=== PATIENT | female | born 1990 | race African-American/Black ===

== ENCOUNTER 2020-10-15 15:39 | Emergency (ER) | payer SELFPAY ==
[~2020-10-15] VITALS: Ht 154.9 cm; Wt 97.3 kg
[2020-10-15 16:07] VITALS: BP 110/71; Ht 154.9 cm; Wt 97.3 kg
[2020-10-15] MEDS ORDERED: BUSPAR10 MG PO (16:09)
[2020-10-15] MEDS ORDERED: TRAZODONE HCL100 MG PO (16:09)
[2020-10-15] MEDS ORDERED: LEXAPRO5 MG PO (16:09)
[2020-10-15] MEDS ORDERED: HYDROXYUREA500 MG PO (16:09)
[2020-10-15] MEDS ORDERED: MOBIC7.5 MG PO (16:09)
[2020-10-15 16:48] LABS: BILIRUBIN NEGATIVE (NEGATIVE); KETONE NEGATIVE (NEGATIVE); NITRITE NEGATIVE (NEGATIVE); SQUAMOUS EPITHELIAL 0-5 HPF (0-4); UROBILINOGEN NORMAL mg/dL (< 2)
[2020-10-15 16:49] LABS: BACTERIA FEW HPF (NONE SEEN); WHITE CELLS - URINE 0-5 HPF (0-4)
[2020-10-15] MEDS ORDERED: MACROBID100 MG PO (18:33)
== END 2020-10-15 18:43 | disposition home or self-care (01) ==
LOC: D.ER 15:39
PROVIDERS: Family Medicine
DX: R30.0 Dysuria (principal); Z20.2 Contact with and (suspected) exposure to infections with a predominantly sexual mode of transmission

== ENCOUNTER 2020-10-18 14:26 | Emergency (ER) | payer MEDICARE ==
[~2020-10-18] VITALS: Ht 154.9 cm; Wt 97.3 kg
[~2020-10-18 14:26] MED LIST: BUSPAR10 MG PO; HYDROXYUREA500 MG PO; LEXAPRO5 MG PO; MACROBID100 MG PO; MOBIC7.5 MG PO; TRAZODONE HCL100 MG PO
[2020-10-18 14:33] VITALS: Ht 154.9 cm; Wt 97.3 kg
[2020-10-18 15:15] LABS: BASOPHILS 0.4 % (0-2); HEMATOCRIT 33.2 % (36.0-48.0); IMMATURE GRANULOCYTES 0.4 % (0-5); LYMPHOCYTE ABS# 3.65 10x3/uL (1.18-3.74); LYMPHOCYTES 25.7 % (15-50); MCH 32.8 pg (26.0-34.0); MCHC 36.1 g/dL (31.0-37.0); MCV 90.7 fL (80.0-100.0); MONOCYTES 6.9 % (2-11); NEUTROPHIL ABS# 9.35 10x3/uL (1.56-6.13); NEUTROPHILS 65.6 % (40-80); PLATELET COUNT 426 10x3/uL (130-400); RBC 3.66 10x6/uL (4.00-5.40); RDW 14.6 % (11.5-14.5); WBC 14.2 10x3/uL (4.8-10.8)
[2020-10-18 15:22] LABS: CALC OSMOLALITY 278 mosm/kg (275-300); CARBON DIOXIDE 22.9 mmol/L (21.0-32.0); CHLORIDE - SERUM 105 mmol/L (98-107); CREATININE - SERUM 0.8 mg/dL (0.6-1.3); GLUCOSE 84 mg/dL (74-106); POTASSIUM - SERUM 4.3 mmol/L (3.5-5.1); SODIUM 141 mmol/L (136-145); UREA NITROGEN 10 mg/dL (7-18); eGFR NON AFRICAN AMERICAN 90 mL/min (90-120)
[2020-10-18 15:28] LABS: ALBUMIN 3.7 g/dL (3.4-5.0); ALKALINE PHOSPHATASE 95 U/L (30-120); ALT (SGPT) 82 U/L (10-68); BILIRUBIN - TOTAL 1.26 mg/dL (0.2-1.3); PROTEIN - SERUM 7.2 g/dL (6.4-8.2)
[2020-10-18 16:36] LABS: HCG URINE NEGATIVE (NEGATIVE)
[2020-10-18 16:42] LABS: BILIRUBIN NEGATIVE (NEGATIVE); KETONE NEGATIVE (NEGATIVE); NITRITE NEGATIVE (NEGATIVE); UROBILINOGEN NORMAL mg/dL (< 2)
[2020-10-18 16:43] LABS: WHITE CELLS - URINE 0-5 HPF (0-4)
[2020-10-18 16:44] LABS: BACTERIA FEW HPF (NONE SEEN)
[2020-10-18] MEDS ORDERED: OMNICEF300 MG PO (17:20)
[2020-10-18] MEDS ORDERED: FLORASTOR250 MG PO (17:20)
[2020-10-18 17:52] VITALS: BP 111/70
[2020-10-19] MEDS ORDERED: HYDROXYUREA500 MG PO (17:02)
== END 2020-10-18 17:53 | disposition home or self-care (01) ==
LOC: D.ER 14:26
PROVIDERS: Family Medicine
DX: D57.00 Hb-SS disease with crisis, unspecified (principal); R10.9 Unspecified abdominal pain; R19.7 Diarrhea, unspecified; D72.829 Elevated white blood cell count, unspecified; M79.605 Pain in left leg; M79.604 Pain in right leg; M54.5 Low back pain

== ENCOUNTER 2020-10-19 09:27 | Inpatient (IN) | payer MEDICARE ==
[~2020-10-19] VITALS: Ht 154.9 cm; Wt 97.3 kg
[~2020-10-19 09:27] MED LIST changes: +FLORASTOR250 MG PO; +OMNICEF300 MG PO
[2020-10-19 09:33] VITALS: Ht 154.9 cm; Wt 97.3 kg
--- NOTE | 2020-10-19 09:53 | NUR ---
PT STATES SHE WAS JUST ANSWERING WHAT THE NURSE ASKED HER IN TRIAGE WHEN SHE SAID SHE WISHED SHE WERE . STATES " I JUST NEED AND ANTIBIOTIC BECAUSE MY WHITE COUNT IS HIGH. THEY NEED TO FIND OUT WHAT IS WRONG WITH ME" "I ALSO HAVE AN ODOR , I AM GETTING TREATED BAD WHERE I STAY FOR IT. I NEED SOMETHING FOR THAT TOO. " EXPLAIN WE ARE GOING TO CHECK HER LABS , IF ANYTHING IS WRONG THE DR WILL ORDER WHAT IS NEEDED.
--- NOTE | 2020-10-19 10:03 | NUR ---
PSYCH SCREENER IN ROOM.
[2020-10-19 10:04] LABS: BASOPHILS 0.3 % (0-2); EOSINOPHILS 0.8 % (0-7); HEMATOCRIT 30.3 % (36.0-48.0); HEMOGLOBIN 10.9 g/dL (12-16); IMMATURE GRANULOCYTES 0.5 % (0-5); LYMPHOCYTE ABS# 3.91 10x3/uL (1.18-3.74); LYMPHOCYTES 31.4 % (15-50); MCH 32.9 pg (26.0-34.0); MCV 91.5 fL (80.0-100.0); MEAN PLATELET VOLUME 9.1 fL (7.4-10.4); NEUTROPHIL ABS# 7.35 10x3/uL (1.56-6.13); PLATELET COUNT 275 10x3/uL (130-400); RBC 3.31 10x6/uL (4.00-5.40); RDW 15.1 % (11.5-14.5); RETIC 5.37 % (0.45-2.28); WBC 12.5 10x3/uL (4.8-10.8)
--- NOTE | 2020-10-19 10:16 | NUR ---
Reviewed assessment and histery with Dr. Horta and Dr. Haddad/Maryanne charge nurse, and recommendation for psych placement. She has a history of 2 suicidal attempts, has been treated in the past with counseling (was non-compliant) and medications. She states that she is here at "[facility]" [place] and has not had her medications for the last 3 days. She states she knows she needs them. She is hesitant but will go to inpatient psych if needed. She scored a moderate risk. order rec'd for suicide watch with a assessment and monitoring sitter.
--- NOTE | 2020-10-19 10:19 | NUR ---
URINE AND COVID SWAB SENT TO LAB. LAB STATES BLOOD IS HEMOLIZED AND WILL HAVE TO REDRAW.
--- NOTE | 2020-10-19 10:31 | NUR ---
BELONGINGS PLACED IN BAG PT IN BLUE SCRUBS.
--- NOTE | 2020-10-19 10:31 | NUR ---
SITTER AT DOOR
[2020-10-19 10:37] LABS: BILIRUBIN NEGATIVE (NEGATIVE); KETONE NEGATIVE (NEGATIVE); NITRITE NEGATIVE (NEGATIVE); UROBILINOGEN NORMAL mg/dL (< 2)
[2020-10-19 10:43] LABS: WHITE CELLS - URINE 0-5 HPF (0-4)
[2020-10-19 10:44] LABS: BACTERIA FEW HPF (NONE SEEN)
[2020-10-19 10:47] LABS: UDS - AMPHET NEGATIVE QUAL (NEGATIVE); UDS - BARB NEGATIVE QUAL (NEGATIVE); UDS - BENZO NEGATIVE QUAL (NEGATIVE); UDS - COCAINE NEGATIVE QUAL (NEGATIVE); UDS - OPIATE NEGATIVE QUAL (NEGATIVE); UDS - PCP NEGATIVE QUAL (NEGATIVE); UDS - THC NEGATIVE QUAL (NEGATIVE)
[2020-10-19 10:58] LABS: MAGNESIUM - SERUM 2.2 mg/dL (1.8-2.4)
[2020-10-19 11:05] LABS: ACETAMINOPHEN < 10.0 ug/mL (10.0-30.0)
[2020-10-19 11:07] LABS: SARS-CoV-2 ANTIGEN NEGATIVE- SARS-COV-2 (NEGATIVE)
[2020-10-19 11:08] LABS: AMYLASE - SERUM 94 U/L (25-115); LIPASE 136 U/L (73-393)
[2020-10-19 11:21] LABS: CALC OSMOLALITY 270 mosm/kg (275-300); CALCIUM 8.8 mg/dL (8.5-10.1); CARBON DIOXIDE 25.8 mmol/L (21.0-32.0); CHLORIDE - SERUM 104 mmol/L (98-107); CREATININE - SERUM 0.8 mg/dL (0.6-1.3); GLUCOSE 86 mg/dL (74-106); POTASSIUM - SERUM 4.3 mmol/L (3.5-5.1); SODIUM 137 mmol/L (136-145); UREA NITROGEN 8 mg/dL (7-18); eGFR NON AFRICAN AMERICAN 90 mL/min (90-120)
[2020-10-19 11:27] LABS: ALBUMIN 3.4 g/dL (3.4-5.0); ALKALINE PHOSPHATASE 83 U/L (30-120); ALT (SGPT) 79 U/L (10-68); BILIRUBIN - TOTAL 1.01 mg/dL (0.2-1.3); PROTEIN - SERUM 7.1 g/dL (6.4-8.2)
--- NOTE | 2020-10-19 11:42 | NUR ---
FAX INFORMATION TO WALKER
[2020-10-19] MEDS ORDERED: HYDROXYUREA500 MG PO (17:02)
[2020-10-19 19:27] VITALS: BP 134/78
[2020-10-20 06:51] LABS: BASOPHILS 0.3 % (0-2); EOSINOPHILS 1.2 % (0-7); HEMATOCRIT 30.9 % (36.0-48.0); HEMOGLOBIN 11.1 g/dL (12-16); IMMATURE GRANULOCYTES 0.5 % (0-5); LYMPHOCYTE ABS# 3.39 10x3/uL (1.18-3.74); LYMPHOCYTES 27.1 % (15-50); MCH 32.6 pg (26.0-34.0); MCHC 35.9 g/dL (31.0-37.0); MCV 90.9 fL (80.0-100.0); MONOCYTES 7.3 % (2-11); NEUTROPHIL ABS# 7.97 10x3/uL (1.56-6.13); NEUTROPHILS 63.6 % (40-80); RDW 15.2 % (11.5-14.5); WBC 12.5 10x3/uL (4.8-10.8)
[2020-10-20 07:03] LABS: PLATELET COUNT 400 10x3/uL (130-400)
[2020-10-20 07:15] LABS: ALBUMIN 3.2 g/dL (3.4-5.0); ALKALINE PHOSPHATASE 80 U/L (30-120); ALT (SGPT) 70 U/L (10-68); BILIRUBIN - TOTAL 0.85 mg/dL (0.2-1.3); CALC OSMOLALITY 275 mosm/kg (275-300); CHLORIDE - SERUM 106 mmol/L (98-107); CREATININE - SERUM 0.8 mg/dL (0.6-1.3); GLUCOSE 83 mg/dL (74-106); POTASSIUM - SERUM 4.2 mmol/L (3.5-5.1); PROTEIN - SERUM 6.9 g/dL (6.4-8.2); SODIUM 140 mmol/L (136-145); UREA NITROGEN 8 mg/dL (7-18); eGFR NON AFRICAN AMERICAN 90 mL/min (90-120)
[2020-10-20 18:48] VITALS: BP 116/63
--- NOTE | 2020-10-20 19:22 | NUR ---
pt sitting in bed watching tv given apple juice and mary crackers. pt calm and cooperative. sitter at bedside.
[2020-10-20 20:46] VITALS: BP 114/73
--- NOTE | 2020-10-21 08:29 | NUR ---
BREAKFAST TRAY TO PT.
--- NOTE | 2020-10-21 11:42 | NUR ---
PT IV SITE TO L AC INFILTRATED WITH GOLF BALL SIZE AMOUNT OF NS. IV DC'D CANNULA INTACT. COLD PACK PROVIDED TO PT FOR PT COMFORT. WILL CONTINUE TO MONITOR.
--- NOTE | 2020-10-21 11:43 | NUR ---
MEAL TRAY TO PT. PT EATING. PT STATES NO LONGER FEELS SUICIDAL.
--- NOTE | 2020-10-21 11:48 | NUR ---
REQUEST SENT TO CARE FOR DR. TURK TO RE-EVALUATE PT. PT STATES IS NO LONGER FEELING SUICIDAL.
--- NOTE | 2020-10-21 14:19 | CN ---
PATIENT NAME:NOAH SOLORZANO MEDICAL RECORD: [id number] : 89 LOCATION:[facility]- ADMIT DATE: 10/19/20 ACCOUNT: [id number] CONSULTING PHYSICIAN: MARCO TURK MD REFERRING PHYSICIAN: DONNIE BRIONES MD DATE OF CONSULTATION: 10/20/2020 IDENTIFYING DATA: The patient is 30 years old and she is admitted to the hospital voluntarily. CHIEF COMPLAINT: Depression. HISTORY OF PRESENT ILLNESS: The patient has sickle cell disease and is accustomed to having numerous sickle cell crisis. She presents to the Emergency Room at this time having dropped her hematocrit significantly and reporting that she wants to kill herself. She endorses numerous neurovegetative depressive symptoms and says that she would kill herself by taking an overdose. She has a history of such behavior and indeed was in the psychiatric hospital in [place] in June. ASSESSMENT: Major depression. PLAN: The patient is reporting active suicidal thoughts associated with depressive symptoms. I recommend she be transferred to inpatient psychiatric care as soon as it is practical to do so. I have increased the dose of both her antidepressant and the anxiolytic medication she is taking. TRANSINT:[id number] Voice Confirmation ID: [id number] DOCUMENT ID: [id number] MARCO TURK MD at 1419 CC: [id number] DICTATION DATE: 10/20/20 1559 MACHINE WOOD SANDER: 10/20/201947 ADM IN [place] [id number] [place] [address]
[2020-10-21 20:51] LABS: HEMATOCRIT 29.5 % (36.0-48.0); HEMOGLOBIN 10.8 g/dL (12-16); MCH 33.6 pg (26.0-34.0); MCHC 36.6 g/dL (31.0-37.0); MCV 91.9 fL (80.0-100.0); MEAN PLATELET VOLUME 8.9 fL (7.4-10.4); PLATELET COUNT 411 10x3/uL (130-400); RBC 3.21 10x6/uL (4.00-5.40); RDW 16.3 % (11.5-14.5); RETIC 7.83 % (0.45-2.28); WBC 13.3 10x3/uL (4.8-10.8)
[2020-10-21 21:08] LABS: ALBUMIN 3.3 g/dL (3.4-5.0); ALKALINE PHOSPHATASE 87 U/L (30-120); BILIRUBIN - TOTAL 0.97 mg/dL (0.2-1.3); CALCIUM 8.5 mg/dL (8.5-10.1); CARBON DIOXIDE 27.3 mmol/L (21.0-32.0); CHLORIDE - SERUM 105 mmol/L (98-107); CREATININE - SERUM 0.8 mg/dL (0.6-1.3); GLUCOSE 101 mg/dL (74-106); POTASSIUM - SERUM 3.8 mmol/L (3.5-5.1); PROTEIN - SERUM 6.8 g/dL (6.4-8.2); SODIUM 138 mmol/L (136-145); eGFR NON AFRICAN AMERICAN 90 mL/min (90-120)
[2020-10-21 21:10] LABS: ALT (SGPT) 91 U/L (10-68); CALC OSMOLALITY 275 mosm/kg (275-300); UREA NITROGEN 12 mg/dL (7-18)
[2020-10-21 21:20] LABS: EOSINOPHILS 1 % (0-7); LYMPHOCYTES 32 % (15-50); MONOCYTES 4 % (2-11); NEUTROPHILS 63 % (40-80); SICKLE CELLS 1+
[2020-10-21 21:21] LABS: PLATELET ESTIMATE NORMAL
--- NOTE | 2020-10-21 23:00 | NUR ---
PATIENT SLEEPING NO SS OF DISTRESS.
--- NOTE | 2020-10-22 02:00 | NUR ---
PATIENT SLEEPING NO SS OF DISTRESS.
--- NOTE | 2020-10-22 04:00 | NUR ---
PATIENT SLEEPING WELL NO SS OF DISTRESS,
[2020-10-22 06:23] VITALS: BP 97/56
--- NOTE | 2020-10-22 06:32 | NUR ---
PATIENTS BED CHANGED TO A INPATIENT BED
--- NOTE | 2020-10-22 09:09 | NUR ---
PATIENT IS MEDICALLY STABLE FOR PLACEMENT IN MENTAL HEALTH FACILITY PER DR. BRIONES.
--- NOTE | 2020-10-22 10:46 | NUR ---
PATIENT SEEN BY [employer]ODUCTION FOR DR. BRIONES
[2020-10-22 12:02] LABS: BASOPHILS 0.3 % (0-2); HEMATOCRIT 30.5 % (36.0-48.0); IMMATURE GRANULOCYTES 0.5 % (0-5); LYMPHOCYTE ABS# 2.91 10x3/uL (1.18-3.74); LYMPHOCYTES 25.7 % (15-50); MCH 33.4 pg (26.0-34.0); MCHC 36.1 g/dL (31.0-37.0); MCV 92.7 fL (80.0-100.0); MEAN PLATELET VOLUME 8.6 fL (7.4-10.4); MONOCYTES 7.1 % (2-11); NEUTROPHIL ABS# 7.42 10x3/uL (1.56-6.13); NEUTROPHILS 65.4 % (40-80); PLATELET COUNT 418 10x3/uL (130-400); RBC 3.29 10x6/uL (4.00-5.40); RDW 17.2 % (11.5-14.5); WBC 11.3 10x3/uL (4.8-10.8)
[2020-10-22 12:10] VITALS: BP 114/68
[2020-10-22 12:12] LABS: CALC OSMOLALITY 276 mosm/kg (275-300); CALCIUM 9.1 mg/dL (8.5-10.1); CARBON DIOXIDE 24.7 mmol/L (21.0-32.0); CHLORIDE - SERUM 106 mmol/L (98-107); CREATININE - SERUM 0.7 mg/dL (0.6-1.3); GLUCOSE 92 mg/dL (74-106); SODIUM 139 mmol/L (136-145); UREA NITROGEN 11 mg/dL (7-18); eGFR NON AFRICAN AMERICAN > 90 mL/min (90-120)
[2020-10-22 12:13] LABS: POTASSIUM - SERUM 4.5 mmol/L (3.5-5.1)
--- NOTE | 2020-10-22 13:34 | NUR ---
PATIENT ACCEPTED AT [facility] TO CARE OF DR. CALVILLO, REPORT CALLED TO NIMA RN, [facility] NOTIFIED OF TRANSPORT NEEDS. PATIENT SENT WITH 10 DAY SUPPLY OF HYDROXYUREA PER [facility] REQUEST.
--- NOTE | 2020-10-22 15:03 | PN ---
PATIENT:NOAH SOLORZANO MEDICAL RECORD: [id number] LOCATION:[place] [address] ADMISSION DATE: 10/19/20 PROGRESS NOTE DATE OF SERVICE: 10/21/2020 SUBJECTIVE: I have discussed this case with nursing and reviewed the chart. OBJECTIVE: The patient has a depressed mood, but apparently has now said she no longer wants to hurt herself. ASSESSMENT: Major depression. PLAN: This patient has a long psychiatric history and she has a history of self-harm. She also told me yesterday that she wanted to kill herself and had plans as to how she would do it. She has carried out these plans in the past and has been hospitalized in the past for suicide attempts. She is endorsing numerous neurovegetative depressive symptoms. She was hospitalized in June of this year, most recently for depression with suicidal intent. Based on the circumstances, I do not feel comfortable changing the recommendation. It is of concern and questionable as to whether or not she no longer wants to hurt herself. If she is saying this, so she could be released so that she might hurt herself given her history, it is unknown. She really not having suicidal thoughts at this time and if so, what has changed in the past 24 hours certainly not her level of depression and it could easily change back. I think she needs to be confined to a psychiatric hospital and I continue to recommend inpatient psychiatric care. TRANSINT:[id number] Voice Confirmation ID: [id number] DOCUMENT ID: [id number] MARCO TURK MD at 1503 CC: [id number] DICTATION DATE: 10/21/20 1543 SUPERVISOR ENROBING: 10/21/202122 ADM IN [facility] [address] [place] [place] [id number]
== END 2020-10-22 15:26 | disposition short-term general hospital (02) | DRG 811 ==
LOC: D.ER 09:27 → D.EDHOLD 20:46
PROVIDERS: Emergency Medicine; Family Medicine; ADMIT Legal Medicine; ATTEND Legal Medicine
DX: D57.1 Sickle-cell disease without crisis (principal); J18.9 Pneumonia, unspecified organism; R45.851 Suicidal ideations; F32.9 Major depressive disorder, single episode, unspecified; F41.9 Anxiety disorder, unspecified; R70.1 Abnormal plasma viscosity; D64.9 Anemia, unspecified